=== PATIENT | female | born 1955 | race Caucasian/White ===

== ENCOUNTER 2017-07-14 10:53 | Emergency (ER) | payer BC ==
[~2017-07-14] VITALS: Ht 175.3 cm; Wt 101.0 kg
[~2017-07-14 10:53] MED LIST: ADDE20TA PO; LEXA20TA PO; XANA0.5T PO
[2017-07-14 10:55] VITALS: BP 152/84; PULSE 65; RESP 16; TEMP 98.3; O2SAT 98
[2017-07-14] MEDS ORDERED: ESTR2TAB PO (11:29)
[2017-07-14] MEDS ORDERED: LEXA20TA PO (11:29)
[2017-07-14] MEDS ORDERED: SODIUM CHLOR 0.9% 1000 ML INJ 1,000 ML IV ONE (12:08)
--- NOTE | 2017-07-14 12:12 | PD ---
HPI Chief Complaint: Fall Time Seen by Provider: 11:42 Travel History International Travel<30 days: No Contact w/Intl Traveler<30days: No Traveled to known affect area: No History of Present Illness HPI 61-year-old female presents to the ED for evaluation of sudden onset 9/10 headache with accompanying blurred vision, photophobia and nausea. Patient states that she was standing in the bathroom when she felt a headache come on. She denies facial droop, difficulties with speech, difficulties with gait. She drove herself to the emergency room. She states that she fell on and landed on her face. She denies loss of consciousness at that time. She was not evaluated by a medical professional. She states that since then she's had pain of the facial bones, worse under the right eye, especially with nose blowing. No treatment attempt at home today. PFSH Past Medical History ADD: Yes Autoimmune Disease: No Anxiety: Yes Depression: Yes Cancer: No Cardiovascular Problems: No Chemotherapy: No Diabetes: Yes (STATED 08/05/15 "I QUIT TAKING THAT A YEAR AGO") Patient Takes Glucophage: No Endocrine: No Genitourinary: No Immune Disorder: No Musculoskeletal: No Neurologic: No Psychiatric: Yes Reproductive: No Respiratory: No Radiation Therapy: No Sickle Cell Disease: No Thyroid Disease: No Menopausal: Yes Past Surgical History AICD: No Arteriovenous Shunt: No Section: Yes (X 3) Gynecologic Surgery: Yes (X3 C-SECTIONS, HYSTERECTOMY) Hysterectomy: Yes Insulin Pump: No Joint Replacement: No Pacemaker: No Other Surgery: Yes Social History Alcohol Use: No (STATES SHE QUIT IN 1984) Tobacco Use: No (STATES SHE QUIT IN 1986) Substance Use: Yes (XANAX AND MARIJUANA) Allergies-Medications (Allergen,Severity, Reaction): Coded Allergies: ketorolac (Unverified Adverse Reaction, Mild, Headache, 07/14/17) Reported Meds & Prescriptions Reported Meds & Active Scripts Active Augmentin (Amoxicillin-Clavulanate) 875-125 Mg Tab 1 Tab PO BID 7 Days Reported Estradiol 2 Mg Tab 5 Mg PO DAILY Lexapro (Escitalopram Oxalate) 20 Mg Tab 20 Mg PO DAILY Review of Systems Except as stated in HPI: all other systems reviewed are Neg Physical Exam Narrative GENERAL: Well-nourished, well-developed white female in no acute distress. Sitting up on the stretcher wearing a pair of sunglasses. SKIN: Warm and dry. Thorough evaluation reveals no edema, ecchymosis, abrasion , or laceration of the skin. HEAD: Normocephalic. Atraumatic. No raccoon eyes or willett sign. No tenderness to palpation of the skull. Positive tenderness to palpation of the facial bones. No bony step-offs. No malocclusion of the teeth. EYES: No scleral icterus. No injection or drainage. PERRLA. EOMI. ENT: Pearly vazquez tympanic membranes bilaterally. Nasal mucosa is moist. Oropharynx without erythema, edema or exudate. NECK: Supple, trachea midline. No JVD or lymphadenopathy. No midline tenderness to palpation. Patient retains full, active, painless range of motion of the neck. CARDIOVASCULAR: Regular rate and rhythm without murmurs, gallops, or rubs. 2+ DP and radial pulses bilaterally. RESPIRATORY: Breath sounds clear and equal bilaterally. No accessory muscle use. GASTROINTESTINAL: Abdomen soft, non-tender, nondistended. + Bowel sounds MUSCULOSKELETAL: No cyanosis, or edema. No tenderness to palpation or limitations to range of motion of the joints of the upper and lower extremities bilaterally. NEUROLOGICAL: Awake and alert. Cranial nerves II through XII intact. Motor and sensory grossly within normal limits. 5/5 muscle strength in all muscle groups. Normal speech. BACK: Nontender without obvious deformity. No CVA tenderness. No midline tenderness. Data Data Last Documented VS Vital Signs Date Time Temp Pulse Resp B/P (MAP) Pulse Ox O2 Delivery O2 Flow Rate FiO2 07/14/17 10:55 98.3 65 16 152/84 (106) [address] Brain W/O Iv Contrast(Rout) (07/14/17 12:08) Sodium Chloride 0.9% Flush (Ns Flush) (07/14/17 12:15) Ketorolac Inj (Toradol Inj) (07/14/17 12:15) Prochlorperazine Inj (Compazine Inj) (07/14/17 12:15) Diphenhydramine Inj (Benadryl Inj) (07/14/17 12:15) Sodium Chlor 0.9% 1000 Ml Inj (Ns 1000 M (07/14/17 12:08) Ct Facial Bones W/O Iv Cont (07/14/17 ) ^ Insert Iv (07/14/17 12:08) Ed Discharge Order (07/14/17 14:13) [facility] Medical Decision Making Medical Screen Exam Complete: Yes Emergency Medical Condition: Yes Differential Diagnosis Posttraumatic headache versus facial fracture versus less likely ICH versus other Narrative Course 61-year-old female presents to the ED for evaluation of sudden onset 9/10 headache with accompanying blurred vision, photophobia and nausea. She denies facial droop, difficulties with speech, difficulties with gait. She drove herself to the emergency room. She states that she fell on and landed on her face sans LOC. She was not evaluated by a medical professional. She states that since then she's had pain of the facial bones, worse under the right eye, especially with nose blowing since the fall. Vitals reviewed. No focal neuro deficits noted. Tender to palpation of the facial bones, particularly in the left orbit. EOM intact and painless. IV was established. Patient was administered Toradol, Compazine, Benadryl. CT of the brain without evidence of IC bleeding. CT of the facial bones reveals left orbital floor fracture. I discussed the results of the CT with Dr. Canada, on-call maxillofacial surgeon. He does not anticipate that the injury will require surgery. He does recommend prophylactic antibiotics and follow-up in the office. On recheck patient endorses resolution of her headache symptoms. She is prescribed Augmentin 875 twice a day 7 days. She is provided with Dr. Canada's information and instructed to follow-up this afternoon for an appointment DAVID. She is instructed to treat symptomatically for future headaches, cautioned not to blow her nose or participate in activities that are likely to lead to follow-up. We discussed reasons to return to the ED. She indicated understanding of instructions and is agreeable to the care plan. The patient is stable and discharged home. Diagnosis Primary Impression: Fracture of left orbital floor Qualified Codes: S02.32XA - Fracture of orbital floor, left side, initial encounter for closed fracture Referrals: Aiden Canada DDS Patient Instructions: Facial Fracture (ED), General Instructions Additional Instructions: Rest, hydrate. Return to normal, gentle activities as tolerated. Take antibiotics as prescribed until every pill is gone. Treat headaches symptomatically with [id number] medications as described on the label. No nose blowing or strenuous activities that may result in a fall until cleared by the maxillofacial specialist. Follow-up with Dr. Canada tomorrow. Return to the ED for any urgent or emergent medical condition. Med/Other Pt SpecificInfo: Prescription(s) given Scripts Amoxicillin-Clavulanate (Augmentin) 875-125 Mg Tab 1 TAB PO BID for Infection for 7 Days, #14 TAB 0 Refills Prov: Damián Levi MD 07/14/17 Disposition: 01 DISCHARGE HOME Condition: Stable Jackie Morris Jul 14, 2017 12:12
[2017-07-14] MEDS ORDERED: SODIUM CHLORIDE 0.9% FLUSH 10 ML FLUSH IVF PRN (12:15)
[2017-07-14] MEDS ORDERED: PROCHLORPERAZINE INJ 10 MG/2 ML VIAL IVP ONE (12:15)
[2017-07-14] MEDS ORDERED: diphenhydrAMINE HCL 50 MG/ML VIAL IVP ONE (12:15)
[2017-07-14] MEDS ORDERED: KETOROLAC TROMETHAMINE 30 MG/ML (IVP) VIAL IVP ONE (12:15)
--- NOTE | 2017-07-14 13:09 | RADRPT ---
EXAM DATE/TIME: 07/14/2017 12:43 [facility] COMPARISON: CT FACIAL BONES W/O CONTRAST, July 14, 2017, 12:43. INDICATIONS : Trauma. Fell and hit head Leland day. Cephalgia. RADIATION DOSE: 66.57 CTDIvol (mGy) MEDICAL HISTORY : Diabetes mellitus type 2. SURGICAL HISTORY : Hysterectomy. section. ENCOUNTER: Initial ACUITY: 1 week PAIN SCALE: 7/10 LOCATION: cranial TECHNIQUE: Multiple contiguous axial images were obtained of the head. Using automated exposure control and adj ustment of the mA and/or kV according to patient size, radiation dose was kept as low as reasonably a chievable to obtain optimal diagnostic quality images. DICOM format image data is available electro nically for review and comparison. FINDINGS: CEREBRUM: The ventricles are normal for age. No evidence of midline shift, mass lesion, hemorrhage or acute in farction. No extra-axial fluid collections are seen. POSTERIOR FOSSA: The cerebellum and brainstem are intact. The 4th ventricle is midline. The cerebellopontine angle i s unremarkable. EXTRACRANIAL: There is evidence of an acute fracture involving left orbital floor. SKULL: The calvaria is intact. No evidence of skull fracture. CONCLUSION: 1. No acute intracranial abnormality. 2. Acute fracture involving the left orbital floor. Alonzo Marina MD on July 14, 2017 at 13:05 Board Certified Radiologist. This report was verified electronically.
--- NOTE | 2017-07-14 13:15 | RADRPT ---
EXAM DATE/TIME: 07/14/2017 12:43 [facility] COMPARISON: No previous studies available for comparison. INDICATIONS : Trauma. Fell and hit head . Hit just under her lower lip. RADIATION DOSE: 34.85 CTDIvol (mGy) MEDICAL HISTORY : Diabetes mellitus type 2. SURGICAL HISTORY : section. Hysterectomy. ENCOUNTER: Initial ACUITY: 1 week PAIN SCORE: 2/10 LOCATION: facial TECHNIQUE: Volumetric scanning of the facial bones was performed. Using automated exposure control and adjustme nt of the mA and/or kV according to patient size, radiation dose was kept as low as reasonably achiev able to obtain optimal diagnostic quality images. DICOM format image data is available electronicall y for review and comparison. FINDINGS: ORBITS: There is evidence of an acute displaced fracture involving the left orbital floor. The left inferior rectus muscle does not appear to be entrapped. NASAL BONE: The nasal bone and maxillary spine are intact ZYGOMATIC ARCHES: Symmetric without evidence of fracture. SINUSES: Minimal mucosal thickening is noted within the left maxillary sinus. The ethmoid and frontal sinuses are intact. No air-fluid levels seen. NASAL CAVITY: Nasal septal deviation is noted to the left. The lacrimal ducts are intact. SOFT TISSUES: No radiopaque foreign bodies seen. No soft-tissue swelling is seen. INTRACRANIAL: No intracranial air seen. CRIBIFORM PLATE: Grossly intact. CONCLUSION: 1. Acute displaced left orbital floor fracture. 2. Minimal left maxillary sinus mucosal thickening. 3. Nasal septal deviation to the left. Alonzo Marina MD on July 14, 2017 at 13:08 Board Certified Radiologist. This report was verified electronically.
[2017-07-14] MEDS ORDERED: AUGM875T3 PO (14:13)
== END 2017-07-14 14:27 | disposition home or self-care (01) ==
LOC: PHEFT 10:53
DX: S02.32XA Fracture of orbital floor, left side, initial encounter for closed fracture (principal); J34.2 Deviated nasal septum; R11.0 Nausea; F98.8 Other specified behavioral and emotional disorders with onset usually occurring in childhood and adolescence; F41.9 Anxiety disorder, unspecified; E11.9 Type 2 diabetes mellitus without complications; W18.30XA Fall on same level, unspecified, initial encounter; Z79.899 Other long term (current) drug therapy; Z88.5 Allergy status to narcotic agent
CPT/HCPCS: 70450; 70486; 96361; 96374; 96375; 99284; J0780; J1200; J1885; J7030